=== PATIENT | female | born 1985 | race Caucasian/White ===

== ENCOUNTER 2019-02-03 17:46 | Outpatient (CLI) | payer OTHER ==
[2019-02-03 18:34] LABS: BILIRUBIN,URINE NEGATIVE (NEGATIVE); GLUCOSE, URINE (UA) NEGATIVE (NEGATIVE); KETONES,URINE (UA) NEGATIVE (NEGATIVE); LEUKOCYTE ESTERASE, URINE NEGATIVE (NEGATIVE); NITRITE,URINE NEGATIVE (NEGATIVE); OCCULT BLOOD,URINE NEGATIVE (NEGATIVE); PH,URINE 6.5 PH (5.0-7.5); PROTEIN,URINE NEGATIVE (NEGATIVE); UROBILINOGEN,URINE 0.2 (NORMAL) E.U./dL (NORMAL)
[2019-02-03 18:35] LABS: CLARITY,URINE CLEAR (CLEAR)
--- NOTE | 2019-02-03 18:52 | PROVIDER PROGRESS NOTE ---
- HPI Chief Complaint: Vaginal bleeding Current : Vital Signs Temperature 36.6 C 02/03/19 18:04 Heart Rate 90 02/03/19 18:04 Respiratory Rate 18 02/03/19 18:04 Blood Pressure 129/78 02/03/19 18:04 O2 Saturation 99 02/03/19 18:04 Temperature 36.6 C 02/03/19 18:04 Heart Rate 90 02/03/19 18:04 Respiratory Rate 18 02/03/19 18:04 Blood Pressure 129/78 02/03/19 18:04 O2 Saturation 99 02/03/19 18:04 The patient comes in tonight complaining of some vaginal bleeding. She has a little over 30 weeks gestation.He was recently transferred to [facility] from [facility]. She has gestational diabetes this is diet-controlled. She is had 2 previous sections. 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 She is done well this other than that. She states yesterday her and her had intercourse. He left for overseas deployment today. She began noticing some pinkish discharge when she wiped after urination.She denies any fevers, chills, nausea, vomiting, constipation, diarrhea, dysuria, cramping or vaginal fluid.She came to OB for an evaluation. - Exam Heart: Heart has a regular rate and rhythm without murmur Lungs: Lungs are clear to auscultation bilaterally without wheezes, rales or rhonchi Abdomen: The abdomen is soft, pliable and nontender. The old surgical scars are noted. The uterus is gravid and soft and nontender. No contractions at all are noted on the monitor.The fetus is reactive. Pelvic: The cervix is closed and thick and posterior.No blood at all as noted in the vagina. No unusual discharges are noted. No signs of infection are appreci ated. Laboratory Results - last 24 hr 02/03/19 17:58 Urine Color YELLOW Urine Clarity CLEAR Urine pH 6.5 Ur Specific [place] <=1.005 Urine Protein NEGATIVE Urine Glucose (UA) NEGATIVE Urine Ketones NEGATIVE Urine Occult Blood NEGATIVE Urine Nitrite NEGATIVE Urine Bilirubin NEGATIVE Urine Urobilinogen 0.2 (NORMAL) Ur Leukocyte Esterase NEGATIVE Ur Microscopic Review NOT INDICATED Urine Culture Comments NOT INDICATED - Procedures Findings: Impression: Intrauterine at 30+ weeks gestation Bleeding with urination-urine pending Gestational diabetes Previous section History of peripartum cardiomyopathy Plan: Since there is no evidence of bleeding at this time it is still opined that this was probably promoted by the sexual intercourse that she has had. She knows to call if she has further problems.The patient will be discharged home to follow-up with her OB at her next regularly scheduled visit.
[2019-02-03 19:35] VITALS: BP 122/74
== END 2019-02-03 19:17 | disposition home or self-care (01) ==
LOC: WFO 17:46 → ED 17:46 → FBP 17:49 → WFO 19:17
PROVIDERS: ATTEND Obstetrics & Gynecology
DX: O99.89 Other specified diseases and conditions complicating pregnancy, childbirth and the puerperium (principal); O24.410 Gestational diabetes mellitus in pregnancy, diet controlled; Z3A.30 30 weeks gestation of pregnancy; Z87.59 Personal history of other complications of pregnancy, childbirth and the puerperium
CPT/HCPCS: 81001; 81003; 87086; 99214